=== PATIENT | female | born 1935 ===

== ENCOUNTER 2024-03-28 10:48 | Outpatient (CLI) | payer MEDICARE, SELFPAY ==
--- NOTE | ~2024-03-28 | XR_ITS ---
XR hip RT min 2V 03/28/2024 11:11 Indication: Chronic right hip pain Procedure: 2 views right hip Comparison: No prior studies for comparison. Findings: There is moderate osteoarthritis of the right hip. No fracture, subluxation or dislocation. There are vascular calcifications. Impression: 1: Moderate osteoarthritis of the right hip. Reviewed, dictated and finalized at location B. Impression: 1: Moderate osteoarthritis of the right hip.
== END 2024-03-28 10:49 ==
DX: M16.11 Unilateral primary osteoarthritis, right hip (principal); G89.29 Other chronic pain
CPT/HCPCS: 73502